=== PATIENT | male | born 1950 | race Caucasian/White ===

== ENCOUNTER → 2024-06-10 16:30 | Outpatient (REF) | payer MEDICARE, OTHER, SELFPAY | LOC: MRI 3T 16:30 | PROVIDERS: ATTENDING PHYSICIAN Urology | DX: N40.1 Benign prostatic hyperplasia with lower urinary tract symptoms (principal); R97.20 Elevated prostate specific antigen [PSA] | CPT/HCPCS: 72197; A9575 ==

== ENCOUNTER → 2024-06-28 11:40 | Outpatient (REF) | payer MEDICARE, OTHER, SELFPAY | LOC: CLAB 11:40 | PROVIDERS: ATTENDING PHYSICIAN Urology | DX: R97.20 Elevated prostate specific antigen [PSA] (principal) | CPT/HCPCS: 88305 ==

== ENCOUNTER → 2024-12-28 09:57 | Outpatient (REF) | payer MEDICARE, OTHER, SELFPAY | LOC: RCS 09:57 | PROVIDERS: ATTENDING PHYSICIAN Internal Medicine Cardiovascular Disease | DX: I10 Essential (primary) hypertension (principal); I44.4 Left anterior fascicular block; I44.0 Atrioventricular block, first degree | CPT/HCPCS: 93306 ==